=== PATIENT | male | born 1955 | race Caucasian/White ===

== ENCOUNTER 2023-08-14 11:56 | Emergency (ER) | payer OTHER ==
[~2023-08-14] VITALS: Ht 175.3 cm; Wt 68.0 kg
[~2023-08-14 11:56] MED LIST: CEPH-548 PO; HYDR-3917 PO; IBUP-1969 PO; ONDA-8 TL; TAMS-11 PO
[2023-08-14 12:08] VITALS: BP_SYST 125; PULSE 60; RESP 20; TEMP 96.7; O2SAT 97
[2023-08-14] MEDS ORDERED: HYDROcodone/ACETAMIN 5-325 MG TAB (NORCO/ VICODIN) PO ONE (12:15)
[2023-08-14] MEDS ORDERED: IBUPROFEN 800 MG TABLET PO ONE (12:15)
[2023-08-14] MEDS ORDERED: IBUP-1971 PO (14:34)
[2023-08-14] MEDS ORDERED: TRAM50TA2 PO (14:34)
[2023-08-14 14:52] VITALS: BP_SYST 129; PULSE 65; RESP 17; TEMP 97.6; O2SAT 100
== END 2023-08-14 14:49 | disposition home or self-care (01) ==
LOC: SED 11:56
DX: S33.5XXA Sprain of ligaments of lumbar spine, initial encounter (principal); Z79.899 Other long term (current) drug therapy; W11.XXXA Fall on and from ladder, initial encounter; Y93.89 Activity, other specified; Y92.89 Other specified places as the place of occurrence of the external cause; Y99.8 Other external cause status
CPT/HCPCS: 72131; 76376; 99284

== ENCOUNTER 2023-09-08 00:17 | Emergency (ER) | payer OTHER ==
[~2023-09-08] VITALS: Ht 175.3 cm; Wt 68.0 kg
[~2023-09-08 00:17] MED LIST changes: +IBUP-1971 PO; +TRAM50TA2 PO
[2023-09-08 00:35] VITALS: BP_SYST 143; PULSE 55; RESP 20; TEMP 97; O2SAT 95
[2023-09-08] MEDS ORDERED: IBUPROFEN 600 MG TABLET PO ONE (00:45)
[2023-09-08] MEDS ORDERED: NAPR-690 PO (01:51)
[2023-09-08 01:58] VITALS: BP_SYST 141; PULSE 61; RESP 20; TEMP 97.3; O2SAT 97
== END 2023-09-08 01:59 | disposition home or self-care (01) ==
LOC: SED 00:17
DX: S02.2XXA Fracture of nasal bones, initial encounter for closed fracture (principal); S01.81XA Laceration without foreign body of other part of head, initial encounter; E78.00 Pure hypercholesterolemia, unspecified; Z79.899 Other long term (current) drug therapy; W18.39XA Other fall on same level, initial encounter; Y93.89 Activity, other specified; Y92.89 Other specified places as the place of occurrence of the external cause; Y99.8 Other external cause status
CPT/HCPCS: 70450-TC; 70486-TC; 76376; 99284